=== PATIENT | male | born 1950 | race Caucasian/White ===

== ENCOUNTER 2020-11-29 12:04 | Emergency (ER) | payer MEDICARE, BC, OTHER ==
[~2020-11-29] VITALS: Ht 182.9 cm; Wt 78.2 kg
[2020-11-29] MEDS ORDERED: ATOR40TA75 (12:16)
[2020-11-29] MEDS ORDERED: ASPIRIN 81 MG CHEW TABLET PO ONE (12:30)
[2020-11-29 12:31] LABS: BASO # 0.1 10^3/uL (0.0-0.2); BASO % 0.9 % (0.0-1.0); EOS % 0.5 % (0.0-3.0); HEMATOCRIT 48.8 % (42.0-52.0); HEMOGLOBIN 16.2 g/dl (13.5-17.5); LYMPH # 1.2 10^3/uL (1.5-5.0); LYMPH % 19.4 % (24.0-44.0); MEAN CORPUSCULAR HEMOGLOBIN 30.8 pg (27.0-33.0); MEAN CORPUSCULAR HGB CONC 33.2 g/dl (32.0-36.5); MEAN CORPUSCULAR VOLUME 92.8 fl (80.0-96.0); MONO # 0.5 10^3/uL (0.0-0.8); MONO % 8.3 % (2.0-8.0); NEUTROPHILS # 4.5 10^3/uL (1.5-8.5); NEUTROPHILS % 70.4 % (36.0-66.0); PLATELET COUNT, AUTOMATED 267 10^3/uL (150-450); RED BLOOD COUNT 5.26 10^6/uL (4.30-6.10); WHITE BLOOD COUNT 6.4 10^3/uL (4.0-10.0)
--- NOTE | 2020-11-29 12:39 | REP ---
INDICATION: CHEST PAIN. COMPARISON: No comparison study. TECHNIQUE: Portable upright AP chest radiograph. FINDINGS: The lungs are somewhat hyperinflated in appearance but clear. Pleural angles are sharp. No infiltrate is seen. Heart is not enlarged. There is left coronary artery stent material visible. EKG electrodes are seen. No acute bony abnormality. The aorta is calcific and tortuous.. IMPRESSION: Hyperinflation. Left coronary artery stent material visible. No active cardiopulmonary disease seen.. <Electronically signed by David Fowler > 11/29/20 [id number]
[2020-11-29] MEDS ORDERED: TAMS1CAP17 (12:49)
[2020-11-29] MEDS ORDERED: METO1TAB87 (12:49)
[2020-11-29] MEDS ORDERED: ECOT81TA5 PO (12:49)
[2020-11-29 12:56] LABS: ALT/SGPT 52 U/L (12-78); BILIRUBIN,DIRECT 0.3 MG/DL (0.0-0.2); CK-MB VALUE MASS 6.1 NG/ML (<3.6); CPK CREATINE PHOSPHOKINASE 348 U/L (39-308); LIPASE 158 U/L (73-393); MB/CK RELATIVE INDEX 1.75 (< OR =4); TROPONIN I < 0.02 NG/ML (< 0.10)
[2020-11-29 12:58] LABS: INR 0.9; PROTHROMBIN TIME 12.3 SECONDS (12.5-14.3)
[2020-11-29] MEDS ORDERED: NITROGLYCERIN 0.4 MG SUBL TABLET SL STA (13:21)
[2020-11-29] MEDS ORDERED: HEPARIN SOD (PORCINE) 5000UNITS/ML 1ML VIAL/SYRINGE IV ONE (14:50)
[2020-11-29] MEDS ORDERED: HEPARIN DRIP 25,000 UNITS in IV 1 EA IV SCH (14:50)
[2020-11-29] MEDS ORDERED: CLOPIDOGREL 300 MG TAB (PLAVIX) PO ONE (14:50)
[2020-11-29 15:15] LABS: PARTIAL THROMBOPLASTIN TIME 23.4 SECONDS (24.2-38.5)
[2020-11-29 16:17] LABS: RSV AMPLIFICATION NEGATIVE (NEGATIVE)
[2020-11-29] MEDS ORDERED: NITROGLYCERIN 2% OINT 1 GM *U/D* PKT TOP ONE (17:25)
[2020-11-29 18:17] VITALS: BP 173/82
[2020-11-29 19:15] VITALS: BP 142/75
--- NOTE | 2020-11-29 20:39 | ECGEPIP ---
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
--- NOTE | 2020-11-29 20:40 | ECGEPIP ---
[facility] - ED Test Date: 2020-11-29 Pat Name: GERALDO HAYNES Department: Room: - Gender: Male Criminalist: ALEJOHermila : 1950 Requested By: HELEN ALLEN Order Number: [id number] Reading MD: Kaylee Petersen Measurements Intervals [place] Rate: 49 P: 45 NC: 190 QRS: -56 QRSD: 142 T: -12 QT: 488 QTc: 440 Interpretive Statements Sinus bradycardia Right bundle branch block Left anterior fascicular block Bifascicular block Cannot rule out Inferior infarct (masked by fascicular block?) , age undetermined Electronically Signed on 11-29-2020 20:40:13 EDT by Kaylee Petersen
== END 2020-11-29 19:27 | disposition short-term general hospital (02) ==
LOC: M ED 12:04
DX: I20.0 Unstable angina (principal); R94.31 Abnormal electrocardiogram [ECG] [EKG]; E78.5 Hyperlipidemia, unspecified; I25.2 Old myocardial infarction; Z95.5 Presence of coronary angioplasty implant and graft; Z88.0 Allergy status to penicillin; Z79.899 Other long term (current) drug therapy; Z79.82 Long term (current) use of aspirin
CPT/HCPCS: 71045; 80047; 80076; 82550; 82553; 83690; 84484; 85025; 85610; 85730; 87631; 93005; 93041; 94760; 96365; 96366; 99285; J1644